=== PATIENT | male | born 1975 | race Caucasian/White ===

== ENCOUNTER 2016-07-06 20:00 | Emergency (ER) | payer MEDICARE ==
[~2016-07-06] VITALS: Ht 177.8 cm; Wt 117.3 kg
[~2016-07-06 20:00] MED LIST: IBUP-1827 PO; NOMED
[2016-07-06 20:12] VITALS: BP 119/73; PULSE 75; RESP 16; O2SAT 95
[2016-07-06 21:19] LABS: BASOPHILS % (AUTO) 0.3 % (0-3); EOSINOPHILS % (AUTO) 2.7 % (0-5); MONOCYTES % (AUTO) 11.3 % (4-12); Mean Corpuscular Hemoglobin 29.6 pg (27.0-35.0); Mean Corpuscular Volume 90.1 fL (81-100); NEUTROPHILS % (AUTO) 46.8 % (40-74); Platelet Count 261 bil/L (150-400)
[2016-07-06 21:33] LABS: Magnesium 2.3 mg/dL (1.6-2.6)
[2016-07-06] MEDS ORDERED: 0.9% Sodium Chloride 1,000 ML IV ONE (21:45)
[2016-07-06] MEDS ORDERED: HYDROmorphone 0.5 mg/0.5 mL iSecure Syringe IVPUSH PRN (21:45)
[2016-07-06] MEDS ORDERED: Ondansetron 2 mg/mL 2 mL Inj IVPUSH ONE (21:45)
[2016-07-06 22:17] LABS: APPEARANCE,URINE CLEAR (CLEAR,HAZY); COLOR,URINE YELLOW (YELLOW); OCCULT BLOOD,URINE NEGATIVE (NEGATIVE); PH,URINE 5.5 (5.0-8.0); UROBILINOGEN,URINE NORMAL (NORMAL)
--- NOTE | 2016-07-06 22:33 | ED.REPORT ---
HPI-General Illness Date of Service Jul 06, 2016 ED Provider: Wolf Balderas MD A 40 year old homeless male who presents to the ED complaining of abdominal pain that began yesterday. Associated symptoms include diarrhea, vomiting and dizziness. He describes his pain as a "thorn in his side". His symptoms have been intermittent since onset and are not relieved or exacerbated by anything. Patient was sent to the ED with concern for kidney stones. He denies hematochezia, dysuria, hematemesis. Patient is a difficult historian. Nursing Notes Stated Complaint: THORN STICKING PAIN IN STOMACH,ARMS AND LEGS Chief Complaint: Male Abdominal Pain Nursing Notes Reviewed: Yes Allergies: Coded Allergies: azithromycin (Verified Allergy, Unknown, rash, 07/06/16) Scheduled PRN Ibuprofen (Ibuprofen) 600 Mg Tablet 600 MG PO QID PRN PRN For Pain Ondansetron ODT (Zofran ODT) 4 Mg Tablet 4 MG PO Q4H PRN PRN For Nausea Miscellaneous Medications ([None]) No Historical Medication (No Historical Medication) Ea General Time Seen by MD: 21:38 Chief Complaint Abdominal pain Hx Obtained From: Patient Arrived By: Walk-in Sudden in Onset?: No Onset Occurred: Yesterday Symptom Duration: Since onset Location: : Abdomen Quality: Stabbing Radiation: : Does not radiate Severity: Current: Mild Severity: Maximum: Mild Associated with: Reports: Abdominal pain, Dizziness, Vomiting Pertinent Negative: Pt denies other symptoms Recent Healthcare: No recent hospitalization, Recent doctor visit Past Medical History Past Medical History Notes: Multiple visits with psych complaints in the past. Delusional state. Pt not on psych meds and has had multuple DCR evals but not been detained. Past Medical History None reported. Past Surgical History Reports: Appendectomy Smoking History Current Some Day Smoker Social History Alcohol Use: "Social" Drug Use: Denies drug use Other Social History: Frequent ED visitor, Homeless Occupation on the streets now Ambulatory Status Independent Review of Systems Full Review of Systems Constitutional: Denies: Chills, Fever Respiratory: Denies: Shortness of breath Cardiovascular: Denies: Chest pain GI: Reports: Abdominal pain, Diarrhea, Nausea, Vomiting, Denies: Hematemesis, Hematochezia Male: Denies Dysuria Complete sys rev & neg: except as marked. Physical Exam Vital Signs Vital Signs Date Time Temp Pulse Resp B/P Pulse Ox O2 Delivery O2 Flow Rate FiO2 07/06/16 23:18 36.2 59 16 103/61 97 Room Air 07/06/16 20:12 36.3 75 16 119/73 95 Room Air Initial VS: Reviewed Neck: Supple, Non-tender, Full range of motion Extremities: Vascular intact, Neuro intact, No swelling, No tenderness Skin: Warm, Dry, No cyanosis Neurologic: Alert, Oriented, Nonfocal Psychiatric: Mood/affect normal, Behavior normal, Normal thought content General/Constitutional: Awake, Alert Head / Eyes: Atraumatic, Normocephalic, PERRL Respiratory / Chest: Atraumatic, Breath sounds NL, Breath sounds = bilat, No respiratory distress Cardiovascular: Heart rate NL, Regular rhythm, Heart sounds NL, No gallop, No murmurs, No rubs, Pulses = bilaterally Abdomen: Atraumatic, Soft, Non-tender, No distention Back: Atraumatic, Inspection NL, Non-tender BACK: No percussive flank tenderness Interpretation & Diagnostics Lab Results Interpretation Result Diagram: 07/06/16210207/06/162102 Test 07/06/16 21:03 07/06/16 22:03 White Blood Count 7.9th/mm3 (3.8-10.1) Red Blood Count 4.53mil/mm3 (4.40-5.80) Hemoglobin 13.4g/dL (13.8-17.2) Hematocrit 40.8% (41.0-50.0) Mean Corpuscular Volume 90.1fL (81-100) Mean Corpuscular Hemoglobin 29.6pg (27.0-35.0) Mean Corpuscular Hemoglobin Concent 32.8% (32.0-37.0) Red Cell Distribution Width 13.4% (12.3-15.4) Platelet Count 261bil/L (150-400) Neutrophils (%) (Auto) 46.8% (40-74) Lymphocytes (%) (Auto) 38.3% (14-46) Monocytes (%) (Auto) 11.3% (4-12) Eosinophils (%) (Auto) 2.7% (0-5) Basophils (%) (Auto) 0.3% (0-3) Sodium Level 140mEq/L (134-144) Potassium Level 4.4mEq/L (3.5-5.2) Chloride Level 102mEq/L (97-108) Carbon Dioxide Level 25mmol/L (18-29) Blood Urea Nitrogen 16mg/dL (6-24) Creatinine 0.92mg/dL (0.76-1.27) Estimat Glomerular Filtration Rate 96mL/min (>59) Glucose Level 98mg/dL (60-99) Calcium Level 9.0mg/dL (8.5-10.1) Magnesium Level 2.3mg/dL (1.6-2.6) Total Bilirubin 0.2mg/dL (0.0-1.2) Aspartate Amino Transf (AST/SGOT) 26U/L (0-50) Alanine Aminotransferase (ALT/SGPT) 33U/L (0-44) Alkaline Phosphatase 54U/L (25-150) Total Protein 7.4g/dL (6.4-8.4) Albumin 4.4g/dL (3.4-5.0) Lipase 50U/L (13-60) Urine Color Yellow (YELLOW) Urine Appearance Clear (CLEAR,HAZY) Urine pH 5.5 (5.0-8.0) Urine Specific [place] 1.030 (1.003-1.035) Urine Protein Negativemg/dL (NEG,TRACE) Urine Glucose (UA) Negativemg/dL (NEGATIVE) Urine Ketones Negativemg/dL (NEGATIVE) Urine Occult Blood Negative (NEGATIVE) Urine Nitrite Negative (NEGATIVE) Urine Bilirubin Negative (NEGATIVE) Urine Urobilinogen Normalmg/dL (NORMAL) Urine Leukocyte Esterase Negative (NEGATIVE) Urine RBC 0-2/hpf (0-2) Urine WBC 0-5/hpf (0-5) Urine Epithelial Cells Occasional/hpf (NONE-MOD) Urine Crystals None seen (NONE SEEN) Urine Bacteria None/hpf (NONE-FEW) Urine Hyaline Casts None/lpf (NONE) Urine Granular Casts None seen (NONE SEEN) Urine Waxy Casts None seen (NONE SEEN) Urine Red Blood Cell Casts None seen (NONE SEEN) Urine White Blood Cell Casts None seen (NONE SEEN) Urine Mucus Present (None Seen) Urine Trichomonas None seen (NONE SEEN) Urine Yeast None (NONE SEEN) Urinalysis Comment None Urine Culture Reflexed Not indicated Re-Eval/Medical Decision Med Decision/Clinical Course A 40 year old homeless male who presents to the ED complaining of abdominal pain that began yesterday. Associated symptoms include diarrhea, vomiting and dizziness. He describes his pain as a "thorn in his side". His symptoms have been intermittent since onset and are not relieved or exacerbated by anything. Patient was sent to the ED with concern for kidney stones. He denies hematochezia, dysuria, hematemesis. Patient is a difficult historian. Here in the emergency department the patient is afebrile stable vital signs and benign abdominal examination. Laboratory studies notable as below: Urine drug screen negative UA no signs of infection, no blood CBC unremarkable CMP unremarkable Patient received the below medications Toradol, Zofran IV fluids She reported significant subjective improvement. Serial abdominal examinations remained benign. At this time no evidence suggestive of acute surgical abdominal process, appendicitis or biliary disease. I do not feel that abdominal imaging studies are indicated. While there is mention of concern for possible renal colic he is without hematuria and his history is not very suggestive of kidney stone. I am unconvinced and after kidney stone that I feel that imaging studies are indicated. Patient will take Zofran for nausea, orally hydrate and follow up closely with his primary care physician. Follow- up and return precautions were reviewed in detail the patient was discharged in good condition. Time of Eval: 22:56 Patient Status: Condition improved Re-Evaluation/Progress Note: Patient is rechecked. He is informed of his lab results and diagnosis. All of the patient's questions are adressed. He understands and agrees with the treatment plan to discharge. Counseled Regarding: Diagnosis, Lab results, Need for follow-up, When/why to return to ED Discharge & Departure Primary Impression: Diarrhea Additional Impressions: Generalized abdominal pain Dehydration, mild Nausea Disposition: Home Discharge Condition All VS Reviewed: Yes Condition: Improved Patient Instructions: Acute Diarrhea (ED) Additional Instructions: Thank you for seeking care at the emergency room. It is difficult for us to make definitive diagnoses in the ED but we believe that you are experiencing a viral illness. Our primary goal today in the ED was to evaluate you for any life-threatening conditions. Your evaluation was reassuring. You will be discharged with a prescription for Zofran for nausea . please take as prescribed. You should follow-up with your primary doctor in the next week. You should return to the ED immediately if you develop fevers, vomiting, cough, severe abdominal pain, blood in your urine, lightheadedness, weakness or any other concerning signs or symptoms. Thank you for letting us partake in your care today. Referrals: Arnold Arteaga MD (PCP) Scribe Attestation Portions of this note were transcribed by Moise Mckee. I, Dr. Balderas personally performed the history, physical exam and medical decision-making; I reviewed and confirmed the accuracy of the information in the transcribed note. Signed by: Angella Kaye, 07/06/16 2300. copies to: Arnold Arteaga MD, Beck O MD Jul 06, 2016 22:33 MOISE MCKEE Jul 06, 2016 22:37
[2016-07-06] MEDS ORDERED: ONDA4TAB9 PO (22:35)
[2016-07-06 23:18] VITALS: BP 103/61; PULSE 59; RESP 16; O2SAT 97
== END 2016-07-06 23:19 | disposition home or self-care (01) ==
LOC: SED 20:00
DX: R19.7 Diarrhea, unspecified (principal); R10.84 Generalized abdominal pain; E86.0 Dehydration; R11.0 Nausea; R42 Dizziness and giddiness; F17.200 Nicotine dependence, unspecified, uncomplicated; Z98.890 Other specified postprocedural states; Z59.0 Homelessness; Z88.1 Allergy status to other antibiotic agents
CPT/HCPCS: 36415; 80053; 81000; 83690; 83735; 85025; 96361; 96374; 96375; 99285; J1885; J2405; J7030

== ENCOUNTER 2016-10-08 01:49 | Emergency (ER) | payer MEDICARE ==
[~2016-10-08] VITALS: Ht 177.8 cm; Wt 117.3 kg
[~2016-10-08 01:49] MED LIST changes: +ONDA4TAB9 PO
[2016-10-08 01:55] VITALS: BP 120/87; PULSE 70; RESP 18; O2SAT 97
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
[2016-10-08] MEDS ORDERED: IBUP-1827 PO (04:23)
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
== END 2016-10-08 04:56 | disposition home or self-care (01) ==
LOC: SED 01:49
DX: S16.1XXA Strain of muscle, fascia and tendon at neck level, initial encounter (principal); Y04.0XXA Assault by unarmed brawl or fight, initial encounter; Y93.9 Activity, unspecified; Y92.240 Courthouse as the place of occurrence of the external cause; Y99.9 Unspecified external cause status; F17.200 Nicotine dependence, unspecified, uncomplicated; Z88.1 Allergy status to other antibiotic agents

== ENCOUNTER 2017-01-11 02:36 | Emergency (ER) | payer MEDICARE ==
[~2017-01-11] VITALS: Ht 177.8 cm; Wt 122.7 kg
[2017-01-11 02:40] VITALS: BP 131/71; PULSE 71; RESP 18; O2SAT 99
--- NOTE | 2017-01-11 04:04 | ED.REPORT ---
HPI-NVD Date of Service Jan 11, 2017 ED Provider: Mahin Judge MD The patient is a 41 year old male presenting to the ED complaining of vomiting onset earlier today. He thinks that it was something that he ate. Associated symptoms include nausea, and diarrhea. He denies hematemesis, SOB, fever, chills , and hematochezia. The patient reports feeling healthy otherwise. Nursing Notes Stated Complaint: VOMITING Chief Complaint: Male Abdominal Pain Nursing Notes Reviewed: Yes Allergies: Coded Allergies: azithromycin (Verified Allergy, Unknown, rash, 07/06/16) Scheduled PRN Ibuprofen (Ibuprofen) 600 Mg Tablet 600 MG PO QID PRN PRN For Pain Ibuprofen (Ibuprofen) 600 Mg Tablet 600 MG PO QID PRN PRN For Pain Ondansetron ODT (Zofran ODT) 4 Mg Tablet 4 MG PO Q4H PRN PRN For Nausea Miscellaneous Medications ([None]) No Historical Medication (No Historical Medication) Ea General Time Seen by MD: 03:45 Chief Complaint Vomiting Hx Obtained From: Patient Arrived By: Walk-in Onset Occurred: 5 - 8 hours ago Symptom Duration: Since onset Vomiting: Vomiting food Diarrhea: Diarrhea is watery Location: : No pain Recent Healthcare: No recent hospitalization, Recent doctor visit Similar Sx Previous: Yes Past Medical History Past Medical History Notes: Multiple visits with psych complaints in the past. Delusional state. Pt not on psych meds and has had multuple DCR evals but not been detained. Past Medical History previous suicide attempt self-mutilation Past Surgical History None reported Reports: Appendectomy Smoking History Current Some Day Smoker Social History Alcohol Use: "Social" Drug Use: Denies drug use Other Social History: Frequent ED visitor, Homeless Occupation on the streets now Ambulatory Status Independent Review of Systems Constitutional: Denies: Chills, Fever GI: Reports: Diarrhea, Nausea, Vomiting, Denies: Hematemesis, Hematochezia Complete sys rev & neg: except as marked. Respiratory: Denies: Shortness of breath, Wheezing Physical Exam Initial Vital Signs Vital Signs (First) Date Time Temp Pulse Resp B/P Pulse Ox O2 Delivery O2 Flow Rate FiO2 01/11/17 02:40 36.6 71 18 131/71 99 Room Air Initial VS: Reviewed, Vital signs normal Head / Eyes: Atraumatic, Normocephalic ENT: Mucous membranes moist Neck: Supple, Full range of motion Respiratory: Breath sounds normal, Clear to auscultation Cardiovascular: Regular rate & rhythm, Heart sounds normal Back: No CVA tenderness Lymphatic: No lymphadenopathy Extremities: Vascular intact, Neuro intact Skin: Warm, Dry Neurologic: Alert, Oriented Psychiatric: Mood/affect normal, Behavior normal General/Constitutional: Awake, Alert, No acute distress Abdomen: Atraumatic, Soft Re-Eval/Medical Decision Med Decision/Clinical Course 41-year-old male with nausea and vomiting likely secondary to a viral infection. No evidence of anatomic obstruction or other problems. Re-Evaluation/Progress : Time of Eval: 04:50 Re-Evaluation/Progress Note: Patient rechecked. Discussed plan for discharge. All questions addressed. Counseled Regarding: Diagnosis, Lab results, Need for follow-up, When/why to return to ED Discharge & Departure Impression: Primary Impression: Nausea vomiting and diarrhea Discharge Condition All VS Reviewed: Yes Condition: Improved Patient Instructions: Gastroenteritis (ED) Additional Instructions: Ondansetron (Zofran) 4 mg ODT every 4-6 hours as needed for nausea and vomiting , #4 dispensed. Referrals: Arnold Arteaga MD (PCP) Julitaibcalixto Attestation Portions of this note were transcribed by Cachorro Cook. I, Dr. Judge personally performed the history, physical exam and medical decision-making; I reviewed and confirmed the accuracy of the information in the transcribed note. Signed by: Angella Murray, 01/11/2017 copies to: Arnold Arteaga MD, Howard L MD Jan 11, 2017 04:04 Jan 11, 2017 04:12
[2017-01-11] MEDS ORDERED: _Ondansetron ODT 4 mg Tablet PO PRN (04:10)
[2017-01-11] MEDS ORDERED: Ondansetron 8 mg ODT Tablet PO ONE (04:10)
[2017-01-11 05:00] VITALS: BP 128/70; PULSE 70; RESP 16; O2SAT 100
== END 2017-01-11 05:01 | disposition home or self-care (01) ==
LOC: SED 02:36
DX: R11.2 Nausea with vomiting, unspecified (principal); R19.7 Diarrhea, unspecified; F17.200 Nicotine dependence, unspecified, uncomplicated; Z59.0 Homelessness; Z88.1 Allergy status to other antibiotic agents